=== PATIENT | male | born 1995 | race Caucasian/White ===

== ENCOUNTER 2017-10-08 11:30 | Emergency (ER) | payer MEDICAID ==
[2017-10-08 11:40] VITALS: RESP 18
--- NOTE | 2017-10-08 12:52 | C.PDOC ---
Time Seen by Provider: 10/08/17 11:50 Chief Complaint (Nursing): Abdominal Pain Past Medical History Vital Signs: Last Vital Signs Temp 97.6 F 10/08/17 11:39 Pulse 106 H 10/08/17 11:39 Resp 18 10/08/17 11:39 BP 147/98 H 10/08/17 11:39 Pulse Ox 98 10/08/17 11:39 - Social History Hx Alcohol Use: No Hx Substance Use: No ED Course And Treatment O2 Sat by Pulse Oximetry: 98 Disposition - Disposition Forms: [employer] (Filipino)
[2017-10-08] MEDS ORDERED: Sodium Chloride 0.9% 1,000 ML IV STA (12:56)
--- NOTE | 2017-10-08 13:01 | C.PDOC ---
History Of Present Illness 21-year-old male, presents to the emergency department with complaints of one week duration of loss of appetite, nausea, urinary frequency, and pain to right side of abdomen. Patient denies any vomiting, fever, chills, shortness of breath , dysuria, hematuria or any other associated symptoms. No other complaints at this time. Time Seen by Provider: 10/08/17 11:50 Chief Complaint (Nursing): Abdominal Pain History Per: Patient History/Exam Limitations: no limitations Current Symptoms Are (Timing): Still Present Past Medical History Reviewed: Historical Data, Nursing Documentation, Vital Signs Vital Signs: Last Vital Signs Temp 97.7 F 10/08/17 14:19 Pulse 77 10/08/17 14:19 Resp 18 10/08/17 14:19 BP 127/88 10/08/17 14:19 Pulse Ox 98 10/08/17 14:29 Family History: States: No Known Family Hx - Social History Hx Alcohol Use: No Hx Substance Use: No Review Of Systems Constitutional: Negative for: Fever Cardiovascular: Negative for: Chest Pain Respiratory: Negative for: Shortness of Breath Gastrointestinal: Positive for: Nausea, Abdominal Pain Genitourinary: Positive for: Frequency. Negative for: Dysuria, Hematuria Musculoskeletal: Negative for: Back Pain Neurological: Negative for: Weakness, Headache, Dizziness Physical Exam - Physical Exam Appears: Non-toxic, No Acute Distress Skin: Normal Color, Warm, Dry, No Rash Head: Normacephalic Eye(s): bilateral: PERRL Nose: Normal Oral Mucosa: Moist Lips: Normal Appearing Neck: Normal ROM Cardiovascular: Rhythm Regular, No Murmur Respiratory: Normal Breath Sounds, No Accessory Muscle Use Gastrointestinal/Abdominal: Soft, Tenderness (RUQ), No Guarding, No Rebound Extremity: Normal ROM, No Deformity, No Swelling Neurological/Psych: Oriented x3, Normal Speech ED Course And Treatment - Laboratory Results Result Diagrams: 10/08/17 13:14 10/08/17 13:14 O2 Sat by Pulse Oximetry: 98 (RA) Pulse Ox Interpretation: Normal - CT Scan/US RUQ US Other Rad Studies (CT/US): Read By Radiologist, Radiology Report Reviewed CT/US Interpretation: Accession No. : [id number]. Patient Name / ID : RUSTY BROWN / [id number]. Exam Date : 10/08/2017 13:14:22 ( Approved ). Study Comment : Sex / Age : M / 21Y. Creator : Mynor Marin MD. Dictator : Mynor Marin MD. Machine Carton Marker : Wildlife Control Agent : Mynor Marin MD. Approver2 : Report Date : 10/08/2017 14:08:47. My Comment : . Right upper quadrant abdominal ultrasound. History: Right upper quadrant abdominal pain. Comparison: Ultrasound dated 12/08/2015. Technique: Real-time sonography was performed through the right upper quadrant of the abdomen. Findings: Liver: 13.6 centimeters in length. Increased echogenicity of the hepatic parenchymal cortex suggestive for fatty infiltration versus hepatic parenchymal disease. Clinical correlation. Adjacent to the cruz hepatis, there is a hypoechoic focus/lesion measuring 2.1 x 1.0 x 1.9 centimeters. This is of uncertain clinical etiology and may represent focal fatty sparing. This may be better delineated with CT scan if clinically indicated. Gallbladder: Cholelithiasis with 9 millimeter echogenic foci noted within the gallbladder. Normal wall thickness of 1.7 millimeters. Negative sonographic Olivares's sign. Common bile duct measures 1.6 millimeters, within normal limits. Visualized portions of the pancreas are preserved. Pancreatic tail not well visualized. Visualized aorta and IVC are preserved. Right kidney: 9.3 x 3.7 x 4 5 centimeters. No calculi or hydronephrosis. Impression: Increased echogenicity of the hepatic parenchymal cortex suggestive for fatty infiltration versus hepatic parenchymal disease. Clinical correlation. 2.1 x 1.0 x 1.9 centimeter hypoechoic focus/lesion within the liver adjacent to the cruz hepatis. This is of uncertain clinical etiology. This may represent focal fatty sparing. Additional etiologies not excluded. This may be better delineated with CT scan if clinically indicated. Cholelithiasis. Limited visualization of the pancreas. Progress Note: Bloodwork, US Abdomen and UA ordered and reviewed. Patient treated with Toradol, Zofran, Protonix and IVF. On re-evaluation patient feels better, copies of US and labs were given to the patient, he was instructed to f/ u PMD within 1-2 days. Disposition - Disposition Referrals: Guillermo Chambers MD [Staff Provider] - Disposition: HOME/ ROUTINE Disposition Time: 14:27 Condition: STABLE Additional Instructions: Follow up with your PMD within 1-2 days. Return to ED if feel worse. Prescriptions: Ibuprofen [Motrin Tab] 400 mg PO Q8 #30 tab Famotidine [Pepcid] 20 mg PO BID #20 tab Instructions: Acute Abdomen (Belly Pain), Adult (DC) Forms: [employer] (Sami) - Clinical Impression Clinical Impression: Abdominal pain - Scribe Statement The provider has reviewed the documentation as recorded by the Scribe (Sun Servin) All medical record entries made by the Scribe were at my direction and personally dictated by me. I have reviewed the chart and agree that the record accurately reflects my personal performance of the history, physical exam, medical decision making, and the department course for this patient. I have also personally directed, reviewed, and agree with the discharge instructions and disposition.
[2017-10-08] MEDS ORDERED: Sodium Chloride 0.9% 1,000 ML ONE (13:14)
[2017-10-08 13:30] LABS: ALB/GLOB RATIO 1.5 (1.0-2.1); ALBUMIN 4.9 g/dL (3.5-5.0); ALT/SGPT 84 U/L (21-72); AST/SGOT 69 U/L (17-59); BLOOD UREA NITROGEN 17 mg/dL (9-20); CALCIUM 10.2 mg/dl (8.6-10.4); GFR AFRICAN-AMERICAN > 60; GFR NON-AFRICAN AMERICAN > 60; LIPASE 60 U/L (23-300)
[2017-10-08 13:55] LABS: BASO # 0.1 K/uL (0.0-0.2); EOS # 0.2 K/uL (0.0-0.7); EOS % 3.4 % (0.0-4.0); HEMOGLOBIN 17.4 g/dL (12.0-18.0); LYMPH # 1.7 K/uL (1.0-4.3); LYMPH % 28.1 % (20.0-40.0); MEAN CELL VOLUME 86.2 fL (80.0-94.0); MEAN CORPUSCULAR HEMOGLOBIN 30.5 pg (27.0-31.0); MEAN CORPUSCULAR HGB CONC 35.3 g/dL (33.0-37.0); MEAN PLATELET VOLUME 9.1 fL (7.2-11.7); MONO # 0.5 K/uL (0.0-0.8); MONO % 8.7 % (0.0-10.0); NEUT # 3.5 K/uL (1.8-7.0); NEUT % 58.8 % (50.0-75.0); NRBC % 0.2 % (0.0-2.0); RBC 5.72 Mil/uL (4.40-5.90); RED CELL DISTRIBUTION WIDTH 13.1 % (11.5-14.5); WHITE BLOOD COUNT 5.9 K/uL (4.8-10.8)
[2017-10-08 14:00] LABS: URINE AMORPHOUS SEDIMENT RARE /ul (<OCC); URINE BILIRUBIN NEGATIVE (NEGATIVE); URINE BLOOD NEGATIVE (NEGATIVE); URINE CLARITY Hazy (Clear); URINE COLOR Yellow (YELLOW); URINE GLUCOSE (UA) NORMAL (Normal); URINE LEUKOCYTE ESTERASE NEG Leu/uL (Negative); URINE PROTEIN 1+ mg/dL (NEGATIVE); URINE UROBILINOGEN NORMAL mg/dL (0.2-1.0)
--- NOTE | 2017-10-08 14:10 | US ---
Right upper quadrant abdominal ultrasound History: Right upper quadrant abdominal pain. Comparison: Ultrasound dated 12/08/2015 Technique: Real-time sonography was performed through the right upper quadrant of the abdomen. Findings: Liver: 13.6 centimeters in length. Increased echogenicity of the hepatic parenchymal cortex suggestive for fatty infiltration versus hepatic parenchymal disease. Clinical correlation. Adjacent to the cruz hepatis, there is a hypoechoic focus/lesion measuring 2.1 x 1.0 x 1.9 centimeters. This is of uncertain clinical etiology and may represent focal fatty sparing. This may be better delineated with CT scan if clinically indicated. Gallbladder: Cholelithiasis with 9 millimeter echogenic foci noted within the gallbladder. Normal wall thickness of 1.7 millimeters. Negative sonographic Olivares's sign. Common bile duct measures 1.6 millimeters, within normal limits. Visualized portions of the pancreas are preserved. Pancreatic tail not well visualized. Visualized aorta and IVC are preserved. Right kidney: 9.3 x 3.7 x 4 5 centimeters. No calculi or hydronephrosis. Impression: Increased echogenicity of the hepatic parenchymal cortex suggestive for fatty infiltration versus hepatic parenchymal disease. Clinical correlation. 2.1 x 1.0 x 1.9 centimeter hypoechoic focus/lesion within the liver adjacent to the cruz hepatis. This is of uncertain clinical etiology. This may represent focal fatty sparing. Additional etiologies not excluded. This may be better delineated with CT scan if clinically indicated. Cholelithiasis. Limited visualization of the pancreas.
[2017-10-08 14:19] VITALS: BP 127/88; PULSE 77; TEMP 97.7
[2017-10-08 14:27] VITALS: O2SAT 98
== END 2017-10-08 14:45 | disposition home or self-care (01) ==
LOC: C.ER 11:30
DX: R10.11 Right upper quadrant pain (principal)
CPT/HCPCS: 76705; 80053; 81001; 83690; 85025; 96361; 96374; 96375; 99284; C9113; J1885; J7040

== ENCOUNTER 2017-10-15 08:44 | Emergency (ER) | payer MEDICAID ==
[2017-10-15 08:56] VITALS: BMI 24.8
[2017-10-15 09:03] VITALS: TEMP 97.5
--- NOTE | 2017-10-15 09:31 | C.PDOC ---
History Of Present Illness 21 y/o male presents with 1+ week of left sided abdominal pain, with occasional nausea, yellowish diarrhea last week, now with last bm yesterday that was normal. no vomiting. fever or chills. pt seen in ED on 10/08/17 for similar pain , had labwork and ruq sonogram done; pt followed up with Dr Chambers and has outpatient abdominal ct scheduled for 10/21/17. pt c/o urinary frequency and dysuria and penile swelling. pt has seen urologist for this, and has a follow up appointment scheduled. pt taking pepcid and motrin with no improvement in pain. Time Seen by Provider: 10/15/17 09:06 Chief Complaint (Nursing): Abdominal Pain History Per: Patient History/Exam Limitations: no limitations Onset/Duration Of Symptoms: Days Current Symptoms Are (Timing): Still Present Severity: Moderate Past Medical History Reviewed: Historical Data, Nursing Documentation, Vital Signs Vital Signs: Last Vital Signs Temp 97.5 F L 10/15/17 08:56 Pulse 79 10/15/17 14:08 Resp 18 10/15/17 14:08 BP 135/94 H 10/15/17 14:08 Pulse Ox 96 10/16/17 14:28 - Medical History PMH: HTN (Doesnt take medication) Surgical History: No Surg Hx Family History: States: No Known Family Hx - Social History Hx Alcohol Use: No Hx Substance Use: No - Immunization History Hx Tetanus Toxoid Vaccination: No Hx Influenza Vaccination: No Hx Pneumococcal Vaccination: No Review Of Systems Constitutional: Negative for: Fever, Chills Gastrointestinal: Positive for: Nausea, Abdominal Pain, Diarrhea. Negative for : Vomiting Genitourinary: Positive for: Dysuria, Other (penile swelling) Physical Exam - Physical Exam Appears: Non-toxic, No Acute Distress Skin: Normal Color, Warm, Dry Head: Atraumatic, Normacephalic Eye(s): bilateral: Normal Inspection Nose: Normal Oral Mucosa: Moist Neck: Supple Chest: Symmetrical Cardiovascular: Rhythm Regular Respiratory: Normal Breath Sounds, No Rales, No Rhonchi, No Wheezing Gastrointestinal/Abdominal: Soft, Tenderness (mild left flank tenderness), No Guarding, No Rebound Back: No CVA Tenderness Male Genital: No Testicular Tenderness, No Testicular Swelling, No Circumcised, Other (easily retractable foreskin, (-) rash, ( -) lesions, no swelling noted to penis. chaperoned by nurse Pilo) Neurological/Psych: Oriented x3, Normal Speech, Normal Cognition ED Course And Treatment - Laboratory Results Result Diagrams: 10/15/17 09:33 10/15/17 09:33 O2 Sat by Pulse Oximetry: 96 (RA) Pulse Ox Interpretation: Normal - CT Scan/US CT- Abd & Pelv. Other Rad Studies (CT/US): Read By Radiologist, Radiology Report Reviewed CT/US Interpretation: PROCEDURE: CT Abdomen and Pelvis with contrast. HISTORY : abd pain. COMPARISON: None. TECHNIQUE: Following oral and intravenous contrast administration, a CT examination of the abdomen and pelvis performed from the domes of the diaphragms to the symphysis pubis with reformatted datasets provided not only axial but also sagittal and coronal series. Contrast dose: Visipaque 320, 100 cc. Radiation dose: Total exam DLP = 219.95 mGy-cm. This CT exam was performed using one or more of the following dose reduction techniques: Automated exposure control, adjustment of the mA and/or kV according to patient size, and/or use of iterative reconstruction technique. FINDINGS: LOWER THORAX: Unremarkable. LIVER: Diminished attenuation throughout the liver suggests hepatic steatosis with the liver otherwise unremarkable. GALLBLADDER AND BILE DUCTS: Unremarkable. PANCREAS: Unremarkable. No gross lesion or ductal dilatation. SPLEEN: Unremarkable. ADRENALS: Unremarkable. No mass. KIDNEYS AND URETERS: Unremarkable. No hydronephrosis. No solid mass. VASCULATURE: Unremarkable. No aortic aneurysm. BOWEL: Unremarkable. No obstruction. No gross mural thickening. APPENDIX: Normal appendix. PERITONEUM: Unremarkable. No free fluid. No free air. LYMPH NODES: Unremarkable. No enlarged lymph nodes. BLADDER: Unremarkable. REPRODUCTIVE: Unremarkable. BONES: No acute fracture. OTHER FINDINGS: None. IMPRESSION: Hepatic steatosis. No definite acute abdominal or pelvic findings. Medical Decision Making Medical Decision Making: Plan: --Labs --UA 1423 pt with no acute findings on cr scan, resting comfortably on stretcher. on ct. shows hepatic steatosis, seen on us done on last visit. bp initially elevated on arrival now 135/94. d/c home with outpt f/u Disposition Counseled Patient/Family Regarding: Studies Performed, Diagnosis, Need For Followup - Disposition Referrals: Guillermo Chambers MD [Staff Provider] - Benitez Farmer MD [Staff Provider] - Disposition: HOME/ ROUTINE Disposition Time: 14:26 Condition: GOOD Additional Instructions: Please follow up with Darrius Chambers and Dr Marquis (high school special education teacher) in the next week. Recommend no drinking. no fatty foods. REturn to ER for any worse symptoms. Instructions: Acute Abdomen (Belly Pain), Adult (DC), Nonalcoholic Fatty Liver Disease (DC) Forms: [facility] (Persian), General Discharge Instructions - Clinical Impression Clinical Impression: Abdominal pain, Hepatic steatosis - PA / ENVIRONMENTAL SERVICES ASSISTANT / Resident Statement MD/DO has reviewed & agrees with the documentation as recorded. - Scribe Statement The provider has reviewed the documentation as recorded by the Lewis Hargrove Provider Attestation All medical record entries made by the Natanibraf were at my direction and personally dictated by me. I have reviewed the chart and agree that the record accurately reflects my personal performance of the history, physical exam, medical decision making, and the department course for this patient. I have also personally directed, reviewed, and agree with the discharge instructions and disposition.
[2017-10-15 09:46] LABS: URINE BILIRUBIN NEGATIVE (NEGATIVE); URINE BLOOD NEGATIVE (NEGATIVE); URINE CLARITY Clear (Clear); URINE COLOR Yellow (YELLOW); URINE GLUCOSE (UA) NORMAL (Normal); URINE LEUKOCYTE ESTERASE NEG Leu/uL (Negative); URINE PROTEIN NEGATIVE (NEGATIVE); URINE UROBILINOGEN NORMAL mg/dL (0.2-1.0)
[2017-10-15 09:53] LABS: BASO # 0.1 K/uL (0.0-0.2); EOS # 0.4 K/uL (0.0-0.7)
[2017-10-15 10:03] LABS: ALB/GLOB RATIO 1.6 (1.0-2.1); ALBUMIN 4.4 g/dL (3.5-5.0); ALT/SGPT 45 U/L (21-72); AST/SGOT 31 U/L (17-59); BLOOD UREA NITROGEN 13 mg/dL (9-20); CALCIUM 9.6 mg/dl (8.6-10.4); GFR AFRICAN-AMERICAN > 60; GFR NON-AFRICAN AMERICAN > 60; LIPASE 67 U/L (23-300)
[2017-10-15] MEDS ORDERED: Iohexol 240 (50 ml) PO STA (10:11)
[2017-10-15 10:18] LABS: EOS % 6.2 % (0.0-4.0); LYMPH # 2.4 K/uL (1.0-4.3); LYMPH % 37.9 % (20.0-40.0); MEAN CELL VOLUME 84.5 fL (80.0-94.0); MEAN CORPUSCULAR HEMOGLOBIN 30.4 pg (27.0-31.0); MEAN CORPUSCULAR HGB CONC 35.9 g/dL (33.0-37.0); MEAN PLATELET VOLUME 8.9 fL (7.2-11.7); MONO # 0.5 K/uL (0.0-0.8); MONO % 7.6 % (0.0-10.0); NEUT % 47.3 % (50.0-75.0); NRBC % 0.3 % (0.0-2.0); RBC 5.35 Mil/uL (4.40-5.90); RED CELL DISTRIBUTION WIDTH 12.9 % (11.5-14.5); WHITE BLOOD COUNT 6.3 K/uL (4.8-10.8)
[2017-10-15 10:19] LABS: HEMOGLOBIN 16.3 g/dL (12.0-18.0)
[2017-10-15] MEDS ORDERED: Iohexol 240 (50 ml) ONE (10:23)
[2017-10-15] MEDS ORDERED: Iodixanol 320 MG/ML 100 ML BOTTLE IV ONE (12:19)
--- NOTE | 2017-10-15 13:24 | CT ---
PROCEDURE: CT Abdomen and Pelvis with contrast HISTORY: abd pain COMPARISON: None. TECHNIQUE: Following oral and intravenous contrast administration, a CT examination of the abdomen and pelvis performed from the domes of the diaphragms to the symphysis pubis with reformatted datasets provided not only axial but also sagittal and coronal series. Contrast dose: Visipaque 320, 100 cc Radiation dose: Total exam DLP = 219.95 mGy-cm. This CT exam was performed using one or more of the following dose reduction techniques: Automated exposure control, adjustment of the mA and/or kV according to patient size, and/or use of iterative reconstruction technique. FINDINGS: LOWER THORAX: Unremarkable. LIVER: Diminished attenuation throughout the liver suggests hepatic steatosis with the liver otherwise unremarkable. GALLBLADDER AND BILE DUCTS: Unremarkable. PANCREAS: Unremarkable. No gross lesion or ductal dilatation. SPLEEN: Unremarkable. ADRENALS: Unremarkable. No mass. KIDNEYS AND URETERS: Unremarkable. No hydronephrosis. No solid mass. VASCULATURE: Unremarkable. No aortic aneurysm. BOWEL: Unremarkable. No obstruction. No gross mural thickening. APPENDIX: Normal appendix. PERITONEUM: Unremarkable. No free fluid. No free air. LYMPH NODES: Unremarkable. No enlarged lymph nodes. BLADDER: Unremarkable. REPRODUCTIVE: Unremarkable. BONES: No acute fracture. OTHER FINDINGS: None. IMPRESSION: Hepatic steatosis. No definite acute abdominal or pelvic findings.
[2017-10-15 14:09] VITALS: BP 135/94; PULSE 79; RESP 18
[2017-10-15 14:25] VITALS: O2SAT 96
== END 2017-10-15 14:37 | disposition home or self-care (01) ==
LOC: C.ER 08:44
DX: K76.0 Fatty (change of) liver, not elsewhere classified (principal); R10.9 Unspecified abdominal pain; I10 Essential (primary) hypertension
CPT/HCPCS: 74177; 80053; 81001; 83690; 85025; 87086; 87491; 87591; 96374; 99285; C9113; Q9966; Q9967